=== PATIENT | female | born 1970 | race Caucasian/White ===

== ENCOUNTER 2018-04-19 03:46 | Emergency (ER) | payer OTHER ==
[~2018-04-19] VITALS: Ht 165.1 cm; Wt 91.0 kg
[~2018-04-19 03:46] MED LIST: INSLIS SUBCUT; LEVVL SUBCUT
[2018-04-19] MEDS ORDERED: HYDROCODONE/APAP 7.5/325MG 1 TAB TABLET PO ONE (07:00)
[2018-04-19 10:09] VITALS: BP 142/78
== END 2018-04-19 10:12 | disposition home or self-care (01) ==
LOC: ER 03:46
DX: S92.212D Displaced fracture of cuboid bone of left foot, subsequent encounter for fracture with routine healing (principal); X58.XXXD Exposure to other specified factors, subsequent encounter; E11.9 Type 2 diabetes mellitus without complications; Z79.4 Long term (current) use of insulin; Z91.018 Allergy to other foods; J30.1 Allergic rhinitis due to pollen
CPT/HCPCS: 73610; 73630; 93971; 99284; Z7610

== ENCOUNTER 2019-02-11 21:48 | Inpatient (IN) | payer OTHER ==
[~2019-02-11] VITALS: Ht 165.1 cm; Wt 99.3 kg
[2019-02-12] MEDS ORDERED: PIPERACILLIN/TAZ 3.375G PREMIX 50 ML IV ONE (03:00)
[2019-02-12] MEDS ORDERED: VANCOMYCIN 1 G PREMIX 200 ML IV ONE (03:00)
[2019-02-12] MEDS ORDERED: MORPHINE SULFATE 4 MG/ML CPJ (NOT FOR IM USE) IV ONE (03:00)
[2019-02-12 03:42] LABS: BASOPHILS % 0.9 % (0.0-2.0); EOSINOPHILS % 3.8 % (0.0-5.0); HEMATOCRIT. 37.9 % (36.0-48.0); HEMOGLOBIN. 12.7 g/dL (12.0-16.0); MEAN CORPUSCULAR VOLUME 83.6 fL (81.0-99.0); MEAN PLATELET VOLUME 9.3 fl (7.4-10.4); MONOCYTES % 9.5 % (2.0-8.0); NEUTROPHILS % 54.8 % (40.0-76.0); PLATELET 257 x1000/uL (130-400); RED BLOOD CELL COUNT 4.54 mill/uL (4.2-5.4)
[2019-02-12 03:44] LABS: CHLORIDE 106 mEq/L (98-107)
[2019-02-12 03:47] LABS: PROTHROMBIN TIME 10.2 sec (9.6-11.0)
[2019-02-12 09:30] VITALS: BP 136/70
[2019-02-12] MEDS ORDERED: GUAIFENESIN 200MG/10ML SUGAR FREE UDC PO PRN (10:45)
[2019-02-12] MEDS ORDERED: MAGNESIUM/ALUMINUM HYDROXIDE/SIMETHICONE 30ML UDC PO PRN (10:45)
[2019-02-12] MEDS ORDERED: DEXTROSE 50% WATER 50ML SYRINGE IV PRN (10:45)
[2019-02-12] MEDS ORDERED: CLONIDINE 0.1MG TABLET PO PRN (10:45)
[2019-02-12] MEDS ORDERED: ACETAMINOPHEN 325MG TABLET PO PRN (10:45)
[2019-02-12] MEDS ORDERED: LORAZEPAM 0.5MG TABLET PO PRN (10:45)
[2019-02-12] MEDS ORDERED: HYDROCODONE/ACETAMINOPHEN 5/325MG TABLET PO PRN (10:45)
[2019-02-12] MEDS ORDERED: ONDANSETRON HCL 4MG/2ML INJ IV PRN (10:45)
[2019-02-12] MEDS ORDERED: DIPHENHYDRAMINE 50MG/ML VIAL IV PRN (10:45)
[2019-02-12] MEDS ORDERED: DOCUSATE SODIUM 100MG CAPSULE PO PRN (10:45)
[2019-02-12] MEDS ORDERED: ACETAMINOPHEN 650MG SUPP PR PRN (10:45)
[2019-02-12] MEDS ORDERED: IPRATROPIUM/ALBUTEROL 0.5-3(2.5)MG/3ML NEB INH PRN (10:45)
[2019-02-12] MEDS ORDERED: NA PHOS,M-B/NA PHOS,DI-BA ENEMA 118ML PR PRN (11:00)
[2019-02-12] MEDS: ENOXAPARIN 30MG/0.3ML SYR SUBCUT SCH ×2 (11:51→21:01)
[2019-02-12] MEDS: BLOOD SUGAR DIAGNOSTIC STRIP TEST SCH ×3 (11:54→21:01)
[2019-02-12] MEDS: INSULIN LISPRO 100 UNITS/ML SUBCUT SCH ×3 (11:59→21:32)
[2019-02-12] MEDS ORDERED: VANCOMYCIN 1500MG in DEXTROSE 5% WATER 250ML IV SCH (16:30)
[2019-02-12] MEDS: AMLODIPINE 5MG TABLET PO SCH (16:44)
[2019-02-12] MEDS: PIPERACILLIN/TAZ 3.375G PREMIX 50 ML IV SCH ×2 (16:45→21:33)
[2019-02-12 20:00] VITALS: BP 127/58
[2019-02-13] VITALS: BP 111/54
[2019-02-13] MEDS: PIPERACILLIN/TAZ 3.375G PREMIX 50 ML IV SCH ×4 (03:58→21:16)
[2019-02-13 04:00] VITALS: BP 148/70
[2019-02-13] MEDS: VANCOMYCIN 1 G PREMIX 200 ML IV SCH ×2 (04:41→17:26)
[2019-02-13 07:22] LABS: BASOPHILS % 0.5 % (0.0-2.0); EOSINOPHILS % 3.5 % (0.0-5.0); HEMATOCRIT. 36.6 % (36.0-48.0); HEMOGLOBIN. 12.4 g/dL (12.0-16.0); LYMPHOCYTES % 29.6 % (20.0-50.0); MEAN CORPUSCULAR HEMOGLOBIN 28.4 pg (28.0-32.0); MEAN CORPUSCULAR VOLUME 84.1 fL (81.0-99.0); MEAN PLATELET VOLUME 9.1 fl (7.4-10.4); MONOCYTES % 9.5 % (2.0-8.0); NEUTROPHILS % 56.9 % (40.0-76.0); PLATELET 241 x1000/uL (130-400); RED BLOOD CELL COUNT 4.35 mill/uL (4.2-5.4); RED CELL DISTRIBUTION WIDTH 15.2 % (11.6-14.6)
[2019-02-13 07:41] LABS: CHLORIDE 107 mEq/L (98-107)
[2019-02-13] MEDS: BLOOD SUGAR DIAGNOSTIC STRIP TEST SCH ×4 (07:58→21:00)
[2019-02-13 08:00] VITALS: BP 144/60
[2019-02-13 08:04] LABS: T4 FREE 0.96 ng/dL (0.76-1.46)
[2019-02-13 08:07] LABS: LDL CHOLESTEROL 104 mg/dL (5-100)
[2019-02-13 08:08] LABS: HDL CHOLESTEROL 29 mg/dL (40-59)
[2019-02-13] MEDS: ENOXAPARIN 30MG/0.3ML SYR SUBCUT SCH ×2 (08:49→21:16)
[2019-02-13] MEDS: AMLODIPINE 5MG TABLET PO SCH (08:49)
[2019-02-13] MEDS: INSULIN LISPRO 100 UNITS/ML SUBCUT SCH ×4 (08:54→21:00)
[2019-02-13 12:00] VITALS: BP 125/64
[2019-02-13 16:00] VITALS: BP 127/47
[2019-02-13 19:47] VITALS: BP 118/68
== END 2019-02-13 23:15 | disposition home health service (06) | DRG 344 ==
LOC: ER 21:48 → CANBEDREQ 02-12 06:09 → 6EST 02-12 06:26 → ENRESERV 02-12 07:08 → CANRESERV 02-12 07:08 → ENRESERV 02-12 07:59
PROVIDERS: ADMIT Internal Medicine; ATTEND Internal Medicine
PROC: 02HV33Z Insertion of Infusion Device into Superior Vena Cava, Percutaneous Approach (ICD-10-PCS; principal; 2019-02-12)
PROC: B5181ZA Fluoroscopy of Superior Vena Cava using Low Osmolar Contrast, Guidance (ICD-10-PCS; 2019-02-12)
PROC: B548ZZA Ultrasonography of Superior Vena Cava, Guidance (ICD-10-PCS; 2019-02-12)
DX: E11.621 Type 2 diabetes mellitus with foot ulcer (principal); M86.9 Osteomyelitis, unspecified; E11.40 Type 2 diabetes mellitus with diabetic neuropathy, unspecified; E11.69 Type 2 diabetes mellitus with other specified complication; I10 Essential (primary) hypertension; E66.9 Obesity, unspecified; L97.419 Non-pressure chronic ulcer of right heel and midfoot with unspecified severity; L97.519 Non-pressure chronic ulcer of other part of right foot with unspecified severity; Z88.9 Allergy status to unspecified drugs, medicaments and biological substances; Z79.4 Long term (current) use of insulin; Z68.36 Body mass index [BMI] 36.0-36.9, adult; Z79.84 Long term (current) use of oral hypoglycemic drugs
CPT/HCPCS: 36415; 36569; 36573; 71045; 73630; 73721; 80061; 82962; 83036; 83605; 84439; 84443; 84484; 93005; 93306; 93970; 96374; 96375; 99285; A6261; C1725; J1650; J1815; J2270; J2543; J3370; J7060

== ENCOUNTER 2019-12-04 02:47 | Emergency (ER) | payer OTHER ==
[~2019-12-04] VITALS: Ht 165.1 cm; Wt 86.0 kg
[2019-12-04] MEDS ORDERED: KETOROLAC 15MG/ML VIAL IV ONE (04:15)
[2019-12-04 04:27] LABS: BASOPHILS % 0.5 % (0.0-2.0); EOSINOPHILS % 1.3 % (0.0-5.0); HEMATOCRIT. 33.9 % (36.0-48.0); HEMOGLOBIN. 11.8 g/dL (12.0-16.0); LYMPHOCYTES % 20.9 % (20.0-50.0); MEAN CORPUSCULAR HEMOGLOBIN 28.9 pg (28.0-32.0); MEAN CORPUSCULAR VOLUME 83.2 fL (81.0-99.0); MEAN PLATELET VOLUME 9.4 fl (7.4-10.4); MONOCYTES % 9.3 % (2.0-8.0); PLATELET 204 x1000/uL (130-400); RED BLOOD CELL COUNT 4.08 mill/uL (4.2-5.4)
[2019-12-04 04:30] LABS: CHLORIDE 104 mEq/L (98-107)
[2019-12-04 07:02] VITALS: BP 120/67
== END 2019-12-04 07:07 | disposition home or self-care (01) ==
LOC: ER 02:47
DX: M54.12 Radiculopathy, cervical region (principal); R07.89 Other chest pain; R03.0 Elevated blood-pressure reading, without diagnosis of hypertension; E11.9 Type 2 diabetes mellitus without complications; Z79.4 Long term (current) use of insulin
CPT/HCPCS: 36415; 71045; 72125; 80053; 81025; 84484; 85025; 93005; 96374; 99285; J1885

== ENCOUNTER 2019-12-13 12:13 | Emergency (ER) | payer OTHER ==
[~2019-12-13] VITALS: Ht 165.1 cm; Wt 88.5 kg
[2019-12-13] MEDS ORDERED: ONDANSETRON HCL 4MG/2ML INJ IV STA (14:23)
[2019-12-13] MEDS ORDERED: MORPHINE SULFATE 4 MG/ML CPJ (NOT FOR IM USE) IV STA (14:23)
[2019-12-13 15:12] LABS: HEMATOCRIT. 34.6 % (36.0-48.0); HEMOGLOBIN. 11.6 g/dL (12.0-16.0); MEAN CORPUSCULAR HEMOGLOBIN 28.1 pg (28.0-32.0); MEAN CORPUSCULAR VOLUME 83.7 fL (81.0-99.0); MEAN PLATELET VOLUME 8.8 fl (7.4-10.4); PLATELET 286 x1000/uL (130-400); RED BLOOD CELL COUNT 4.13 mill/uL (4.2-5.4); RED CELL DISTRIBUTION WIDTH 15.4 % (11.6-14.6)
[2019-12-13 15:15] LABS: CHLORIDE 106 mEq/L (98-107)
[2019-12-13 15:18] LABS: PROTHROMBIN TIME 10.7 sec (9.6-11.0)
[2019-12-13 16:21] LABS: PLATELET ESTIMATE NORMAL
[2019-12-13] MEDS ORDERED: VANCOMYCIN 1 G PREMIX 200 ML IV ONE (19:15)
[2019-12-13] MEDS ORDERED: PIPERACILLIN/TAZ 3.375G PREMIX 50 ML IV ONE (19:15)
[2019-12-13] MEDS ORDERED: SODIUM CHLORIDE 0.9% 1000ML BAG (SEPSIS BOLUS) IV ONE (19:30)
[2019-12-13] MEDS ORDERED: MORPHINE SULFATE 4 MG/ML CPJ (NOT FOR IM USE) IV ONE (20:00)
[2019-12-13] MEDS ORDERED: ONDANSETRON HCL 4MG/2ML INJ IV ONE (20:00)
[2019-12-13] MEDS ORDERED: ACETAMINOPHEN 325MG TABLET PO ONE (20:00)
[2019-12-14] MEDS ORDERED: HYDROCODONE/ACETAMINOPHEN 5/325MG TABLET PO NR (00:56)
[2019-12-14 01:09] VITALS: BP 135/59
== END 2019-12-14 01:15 | disposition short-term general hospital (02) ==
LOC: ER 12:13
DX: L03.313 Cellulitis of chest wall (principal); R00.0 Tachycardia, unspecified; M60.88 Other myositis, other site; E11.9 Type 2 diabetes mellitus without complications
CPT/HCPCS: 36415; 71045; 71250; 80053; 82962; 83605; 83690; 83880; 85025; 85610; 87040; 87077; 93005; 96365; 96366; 96375; 96376; 99285; J2270; J2405; J2543; J3370; J7030

== ENCOUNTER 2021-06-07 20:12 | Emergency (ER) | payer OTHER ==
[~2021-06-07] VITALS: Ht 165.1 cm; Wt 99.0 kg
[~2021-06-07 20:12] MED LIST changes: +CEFT2FRO5 IV; -INSLIS SUBCUT; +INSU100I24 SQ; +INSU100V34 SQ; -LEVVL SUBCUT
[2021-06-08 00:04] LABS: CHLORIDE 107 mEq/L (98-107)
[2021-06-08 00:14] LABS: BASOPHILS % 0.7 % (0.0-2.0); EOSINOPHILS % 4.5 % (0.0-5.0); HEMATOCRIT. 35.7 % (36.0-48.0); LYMPHOCYTES % 26.5 % (20.0-50.0); MEAN CORPUSCULAR HEMOGLOBIN 27.6 pg (28.0-32.0); MEAN CORPUSCULAR VOLUME 82.4 fL (81.0-99.0); MEAN PLATELET VOLUME 9.1 fl (7.4-10.4); MONOCYTES % 6.9 % (2.0-8.0); NEUTROPHILS % 61.4 % (40.0-76.0); PLATELET 252 x1000/uL (130-400); RED BLOOD CELL COUNT 4.33 mill/uL (4.2-5.4); RED CELL DISTRIBUTION WIDTH 17.2 % (11.6-14.6)
[2021-06-08 02:10] VITALS: BP 138/88
== END 2021-06-08 02:18 | disposition home or self-care (01) ==
LOC: ER 20:12
DX: R53.1 Weakness (principal); I10 Essential (primary) hypertension; E11.9 Type 2 diabetes mellitus without complications; Z98.890 Other specified postprocedural states; Z79.899 Other long term (current) drug therapy
CPT/HCPCS: 36415; 71045; 80053; 85025; 86850; 86870; 86900; 93005; 99285

== ENCOUNTER 2023-12-01 08:54 | Inpatient (IN) | payer OTHER ==
[~2023-12-01] VITALS: Ht 165.1 cm; Wt 119.7 kg
[~2023-12-01 08:54] MED LIST changes: +AMLO10TA80 MT; -CEFT2FRO5 IV
[2023-12-01 09:33] LABS: BASOPHILS % 0.6 % (0.0-2.0); EOSINOPHILS % 1.3 % (0.0-5.0); HEMATOCRIT. 34.5 % (36.0-48.0); HEMOGLOBIN. 11.4 g/dL (12.0-16.0); LYMPHOCYTES % 17.7 % (20.0-50.0); MEAN CORPUSCULAR HEMOGLOBIN 28.8 pg (28.0-32.0); MEAN CORPUSCULAR HGB CONC 32.9 g/dL (31.0-37.0); MEAN CORPUSCULAR VOLUME 87.4 fL (81.0-99.0); MEAN PLATELET VOLUME 9.2 fl (7.4-10.4); MONOCYTES % 7.1 % (2.0-8.0); NEUTROPHILS % 73.3 % (40.0-76.0); PLATELET 253 x1000/uL (130-400); RED BLOOD CELL COUNT 3.95 mill/uL (4.2-5.4); RED CELL DISTRIBUTION WIDTH 16.4 % (11.6-14.6); WHITE BLOOD COUNT 6.7 x1000/uL (4.5-11.0)
[2023-12-01 10:02] LABS: ALANINE AMINOTRANSFERASE 9 IU/L (10-49); ALBUMIN 4.1 g/dL (3.2-4.8); ASPARTATE AMINOTRANSFERASE 16 IU/L (<34); BILIRUBIN TOTAL 0.5 mg/dL (0.1-1.0); CALCIUM 8.9 mg/dL (8.7-10.4); CARBON DIOXIDE 23 mEq/L (21-32); CHLORIDE 105 mEq/L (98-107); CREATININE 0.9 mg/dL (0.6-1.0); GLUCOSE 97 mg/dL (70-105); POTASSIUM 4.1 mEq/L (3.5-5.1); PROTEIN TOTAL 8.2 g/dL (6.0-8.3); SODIUM 135 mEq/L (136-145); UREA NITROGEN BLOOD 26 mg/dL (9-23)
[2023-12-01] MEDS: VANCOMYCIN 1G PREMIX 200 ML IV ONE (11:00)
[2023-12-01 15:00] VITALS: BP 136/52; PULSE 86; RESP 19; TEMP 96.3
[2023-12-01] MEDS ORDERED: VANCOMYCIN 1G PREMIX 200 ML IV SCH (15:00)
[2023-12-01] MEDS ORDERED: DOCUSATE SODIUM 100MG CAPSULE PO PRN (15:00)
[2023-12-01] MEDS ORDERED: CLONIDINE 0.1MG TABLET PO PRN (15:00)
[2023-12-01] MEDS ORDERED: ONDANSETRON HCL 4MG/2ML INJ IV PRN (15:00)
[2023-12-01] MEDS: ENOXAPARIN 30MG/0.3ML SYR SUBCUT SCH (15:00)
[2023-12-01] MEDS: AMLODIPINE 10MG TABLET PO SCH (15:00)
[2023-12-01] MEDS ORDERED: IPRATROPIUM/ALBUTEROL 0.5-3(2.5)MG/3ML NEB HHN PRN (15:00)
[2023-12-01] MEDS ORDERED: LEVOFLOXACIN 500MG PREMIX 100 ML IV SCH (15:00)
[2023-12-01] MEDS ORDERED: ACETAMINOPHEN 325MG TABLET PO PRN (15:00)
[2023-12-01 16:00] VITALS: BP 136/52; PULSE 82; RESP 19; TEMP 96.3
[2023-12-01] MEDS: LEVOFLOXACIN 750MG PREMIX 150 ML IV SCH (16:00)
[2023-12-01] MEDS ORDERED: DEXTROSE 50% WATER 50ML SYRINGE IV PRN (16:30)
[2023-12-01] MEDS ORDERED: BLOOD SUGAR DIAGNOSTIC STRIP TEST SCH (17:20)
[2023-12-01] MEDS: BLOOD SUGAR DIAGNOSTIC STRIP TEST SCH (17:38)
[2023-12-01] MEDS: INSULIN LISPRO 100 UNITS/ML SUBCUT SCH (17:39)
[2023-12-01 20:00] VITALS: BP 132/45; PULSE 83; RESP 18; TEMP 97.1
[2023-12-01] MEDS ORDERED: NALOXONE HCL 0.4MG/ML VIAL IV PRN (20:30)
[2023-12-01] MEDS: VANCOMYCIN 750MG/150ML IV SCH (23:53)
[2023-12-02] VITALS: BP 149/49; PULSE 84; RESP 18; TEMP 97.3
[2023-12-02] MEDS: HYDROCODONE/ACETAMINOPHEN 5/325MG TABLET PO PRN (00:20)
[2023-12-02 04:00] VITALS: BP 149/49; PULSE 84; RESP 18; TEMP 97.3
[2023-12-02 08:00] VITALS: BP 149/49; PULSE 87; RESP 19; TEMP 95.4
[2023-12-02 12:00] VITALS: BP 139/55; PULSE 79; RESP 19; TEMP 97
[2023-12-02 16:00] VITALS: BP 134/69; PULSE 78; RESP 19; TEMP 96.9
[2023-12-02] MEDS: CEFTRIAXONE 2GM/50ML 50 ML IV SCH (16:29)
[2023-12-02 20:00] VITALS: BP 142/50; PULSE 89; RESP 18; TEMP 98.5
[2023-12-03] VITALS (7 sets, daily range): BP systolic 120–151; BP diastolic 47–64; PULSE 80–87; RESP 18–20; TEMP 95–98.9; O2SAT 99
[2023-12-03 07:52] LABS: CALCIUM 8.4 mg/dL (8.7-10.4); CARBON DIOXIDE 24 mEq/L (21-32); CHLORIDE 106 mEq/L (98-107); CREATININE 0.7 mg/dL (0.6-1.0); GLUCOSE 249 mg/dL (70-105); POTASSIUM 4.1 mEq/L (3.5-5.1); SODIUM 137 mEq/L (136-145); UREA NITROGEN BLOOD 15 mg/dL (9-23)
[2023-12-03] MEDS: VANCOMYCIN 1GM/200ML PMX (BAXTER) IV SCH (11:21)
== END 2023-12-03 21:25 | disposition short-term general hospital (02) | DRG 344 ==
LOC: ER 08:54 → 6EST 12:37 → EDBEDREQ 12:39 → EDBEDREQTM 12:39
PROVIDERS: ADMIT Internal Medicine; ATTEND Internal Medicine
DX: E11.621 Type 2 diabetes mellitus with foot ulcer (principal); M86.171 Other acute osteomyelitis, right ankle and foot; E11.40 Type 2 diabetes mellitus with diabetic neuropathy, unspecified; L97.519 Non-pressure chronic ulcer of other part of right foot with unspecified severity; D64.9 Anemia, unspecified; E11.69 Type 2 diabetes mellitus with other specified complication; E11.628 Type 2 diabetes mellitus with other skin complications; E66.01 Morbid (severe) obesity due to excess calories; Z68.41 Body mass index [BMI] 40.0-44.9, adult; L08.9 Local infection of the skin and subcutaneous tissue, unspecified; Z20.822 Contact with and (suspected) exposure to COVID-19; Z98.891 History of uterine scar from previous surgery
CPT/HCPCS: 36415; 73620; 73630; 73660; 80048; 80053; 80202; 82962; 83036; 85025; 85651; 87426; 99285; J0696; J1650; J1815; J1956; J3370